=== PATIENT | female | born 1945 | race Caucasian/White ===

== ENCOUNTER 2018-02-25 20:54 | Emergency (ER) | payer MEDICARE, OTHER ==
[~2018-02-25 20:54] MED LIST: ALEN35TA30 PO; CALC-852 PO; CHOL200018 PO; CHOL200025 PO; ERGO500037 PO; ESTR-25 PO; ESTR0.5T16 PO; FLU45SYR17 IM; FLU60SYR30 IM ONLY; MULT1TAB64 PO; PNEU0.5D3 IM
--- NOTE | 2018-02-25 21:02 | ER Report ---
History and Physical Time Seen By MD: 20:56 HPI/ROS CHIEF COMPLAINT: Head injury HISTORY OF PRESENT ILLNESS: Patient is 72-year-old female who was walking her dog this evening and tripped over something on the sidewalk landing on her forehead. She denies loss of consciousness. She did receive a laceration to her forehead that will require primary repair. Patient denies that she is on any blood thinners. She states she is taking eyedrops could she is going to have cataract surgery but otherwise takes no medications. She reports no nausea or vomiting. She recalls recent and remote history. She denies any other injuries or complaints at this time. She states last tetanus was 2 years ago. REVIEW OF SYSTEMS: Respiratory: No cough, no dyspnea. Cardiovascular: No chest pain, no palpitations. Gastrointestinal: No vomiting, no abdominal pain. Musculoskeletal: No back pain. Allergies: Coded Allergies: Penicillins (Verified Allergy, Unknown, 05/01/16) Home Meds Reported Medications Peg 400/Hypromellose/Glycerin (EYE DROP TEARS) 15 Ml Drops, 3 ML OS QDAY 02/25/18 Peg 400/Hypromellose/Glycerin (EYE DROP TEARS) 15 Ml Drops, 1 DROP OD QDAY 02/25/18 Discontinued Reported Medications Cholecalciferol (Vitamin D3) (VITAMIN D) 2,000 Unit Tablet, 1 TAB PO QDAY, CAPSULE 05/01/16 Calcium Carbonate/Vitamin D3 (CALCIUM + VITAMIN D TABLET) 1 Each Tablet, 1 EACH PO QDAY 03/21/14 Past Medical/Surgical History Patient denies Smoking Status: Former Smoker Constitutional Vital Sign - Last 24 Hours 02/25/18 20:59 Temp 97.7 Pulse 94 Resp 20 B/P (MAP) 139/88 Pulse Ox 90 O2 Delivery Room Air Physical Exam General Appearance: The patient is alert, has no immediate need for airway protection and no current signs of toxicity. Eyes: Pupils equal and round no injection. Extraocular muscles are intact and symmetrical Respiratory: Chest is non tender, lungs are clear to auscultation. Cardiac: regular rate and rhythm Gastrointestinal: Abdomen is soft and non tender, no masses, bowel sounds normal. Musculoskeletal: Neck: Neck is supple and non tender. Extremities have full range of motion and are non tender. Skin: Patient has a 3 cm stellate laceration to her forehead. Medical Decision Making EKG/Imaging Imaging 02/25/2018 10:16:04 pm called by [facility] radiology read on head CT is negative ED Course/Re-evaluation ED Course 02/25/2018 9:02:03 pm when at this time will be to perform CT scan of the head. We will perform primary repair on the laceration to the forehead. Procedure: Laceration repair. Verbal consent was obtained from the patient. The 3 cm laceration on the forehead was anesthetized in the usual fashion. The wound was scrubbed, draped and explored to its base with a gloved finger. [ ] There were no deep structures involved. The wound was repaired with 6 single interrupted 5-0 Ethilon sutures. The wound repair was simple. The procedure was performed by myself. Decision to Disposition Date: Feb 25, 2018 Decision to Disposition Time: 22:15 Depart Departure Latest Vital Signs Vital Signs Date Time Temp Pulse Resp B/P (MAP) Pulse Ox O2 Delivery O2 Flow Rate FiO2 02/25/18 20:59 97.7 94 20 139/88 90 Room Air Impression: Primary Impression: Facial laceration Condition: Improved Disposition: HOME OR SELF-CARE Referrals: JOSHUA BUENO MD (PCP) Patient Instructions: Facial Laceration (ED) Additional Instructions: Suture removal in 3-5 days Problem Qualifiers Primary Impression: Facial laceration Encounter type: initial encounter Qualified Codes: S01.81XA - Laceration without foreign body of other part of head, initial encounter ANDREIA TREJO MD Feb 25, 2018 21:02
[2018-02-25] MEDS ORDERED: TETRACAIN/EPI/LIDO GEL 3ML SYR TP ONE (21:05)
[2018-02-25] MEDS ORDERED: PEG15DRO5 OD (21:15)
[2018-02-25] MEDS ORDERED: PEG15DRO5 OS (21:15)
[2018-02-25 21:23] VITALS: BP 112/73
--- NOTE | 2018-02-25 22:18 | RADIOLOGY IMAGING REPORT ---
FACILITY: [facility] - [place] PATIENT NAME: Rivka Nolasco : 1945 MR: [id number] V: [id number] EXAM DATE: ORDERING PHYSICIAN: ANDREIA TREJO TECHNOLOGIST: [place] [facility] [place]: Rivka Nolasco : 1945 Visit/Account:[id number] Date of Sevice: 02/25/2018 HEAD W/O CONTRAST HISTORY: Fall. Forehead laceration. COMPARISON: None. TECHNIQUE: Axial images were obtained from the skull base to the vertex without contrast. Sagittal an d coronal reformats were performed. One of the following dose optimization techniques was utilized in the performance of this exam: Autom ated exposure control; adjustment of the mA and/or kV according to the patient's size; or use of an i terative reconstruction technique. Specific details can be referenced in the facility's radiology CT exam operational policy. CONTRAST: None. FINDINGS: Brain: No intracranial hemorrhage, mass, or edema. There are nonspecific periventricular and subcorti kathleen white matter low attenuation foci, mild in severity. There is mild calcification of the internal carotid arteries. Ventricles and sulci: Sulci are prominent, compatible with mild atrophy, normal for age. Ventricular size and configuration is normal. Osseous structures: Intact. 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 Paranasal sinuses and mastoids: There is a small mucous retention pseudocyst in the right maxillary s inus. There is focal mucosal thickening of the medial left sphenoid sinus. Slight rightward nasal sep lewis deviation. Mastoids are clear. Orbits and soft tissues: There is a small hematoma of the forehead. Changes of prior cataract/lens barrios rgery. IMPRESSION: 1. Forehead hematoma, but no acute intracranial abnormality. Report Dictated By: Wendy Mcfarland at 02/25/2018 10:09 PM Report E-Signed By: Wendy Mcfarland at 02/25/2018 10:14 PM WSN:[id number]
== END 2018-02-25 22:21 | disposition home or self-care (01) ==
LOC: ER 21:35
DX: S01.81XA Laceration without foreign body of other part of head, initial encounter (principal); W01.198A Fall on same level from slipping, tripping and stumbling with subsequent striking against other object, initial encounter
CPT/HCPCS: 70450; 99284

== ENCOUNTER → 2018-10-14 | Outpatient (CLI) | payer MEDICARE, OTHER ==
[~2018-10-14] MED LIST changes: +FLU180SY11 IM; +PEG15DRO5 OD; +PEG15DRO5 OS; +ROSU10TA PO
--- NOTE | 2018-10-14 14:19 | RADIOLOGY IMAGING REPORT ---
FACILITY: [facility] - [place] PATIENT NAME: Rivka Nolasco : 1945 MR: [id number] V: [id number] EXAM DATE: ORDERING PHYSICIAN: DANIELA REAL TECHNOLOGIST: Location: [facility] Patient: Rivka Nolasco : 1945 Visit/Account:[id number] Date of Sevice: 10/14/2018 DEXA Scan Clinical history: Postmenopausal screening. Comparison: DEXA scan from 05/03/2014. LUMBAR SPINE: The bone mineral density (BMD) measured from L1-L4 correlates with a Z-score of 1.2 and a T-score of -0.8 which is Normal as defined by the World Health Organization. The corresponding risk of fracture in the lumbar spine is 1-2 times increased compared with a young adult reference population. This v alue has decrease by 2.1 % since the prior study. More than 5% change is considered significant. HIP: Bone mineral density (BMD) measured in the LEFT total hip region correlates with a Z-score -0.2 and a T-score of -2.1 which is osteopenia as defined by the World Health Organization. The corresponding risk of fracture in the hip is 4-6 times increased compared to a young adult reference population. Th is value has decrease by eight % since the prior study. More than 5% change is considered significan t. T score left femoral neck -2.2 Bone mineral density (BMD) measured in the Femoral Neck region measures 0.737 g/cm?. IMPRESSION: 1. Lumbar spine: Normal. There has been 2.1% decrease in the bone mineral density since the previou s exam. 2. Left Total Hip: Osteopenia. There has been 8% decrease in the bone mineral density since the pre vious exam. 3. Femoral Neck: Bone Mineral Density is 0.737 g/cm? The next DEXA scan of this patient should include the following sites: L1-L4 and the left hip. FRAX? WHO Fracture Risk Assessment Tool link: <http://www.shef.ac.uk/FRAX/tool.jsp?locationValue=9> PLEASE NOTE: 1) The World Health Organization defines low BMD as follows: T-score Normal > -1 Osteopenia < -1 and > -2.5 Osteoporosis < -2.5 without fractures Established osteoporosis < -2.5 with fractures 2) In general, you may wish to consider: Diagnosis Treatment Follow-up DEXA Normal BMD Prevention 2-3 years Osteopenia Prevention/therapy 1-2 years Osteoporosis Therapy Yearly 3) Fracture risk estimated from the T-score is more accurate for vertebral fractures (often spontane ous) than for hip fractures. Report Dictated By: Alejandra Suarez MD at 10/14/2018 2:11 PM Report E-Signed By: Alejandra Suarez MD at 10/14/2018 2:12 PM WSN:[id number]
== END ==
LOC: RAD 13:06
PROVIDERS: ATTEND Emergency Medicine
DX: M85.852 Other specified disorders of bone density and structure, left thigh (principal)
CPT/HCPCS: 77080

== ENCOUNTER → 2018-11-03 | Outpatient (CLI) | payer MEDICARE, OTHER ==
--- NOTE | 2018-11-09 10:05 | RADIOLOGY IMAGING REPORT ---
[place] [facility] [place]IENT NAME: JENNIFER AQUINO : [id number] MR: [id number] V: [id number] EXAM DATE: [id number] ORDERING PHYSICIAN: DANIELA REAL TECHNOLOGIST: Clementina Rodgers PROCEDURE: BILATERAL DIGITAL SCREENING MAMMOGRAM WITH CAD ASSISTED INTERPRETATION & 3D TOMOSYNTHESIS. REASON FOR STUDY: Screening. FAMILY HISTORY OF BREAST CANCER: BREAST PROCEDURES/TREATMENTS: COMPARISON: [facility]. VIEWS OBTAINED: 2D & 3D full field CC & MLO projections. BREAST DENSITY: Scattered fibroglandular densities are present in both breasts. MAMMOGRAM FINDINGS: A few benign appearing asymmetries are scattered bilaterally, unchanged. A small benign appearing mass is present in the inferior aspect of the Left breast, unchanged. Several benign appearing calcifications are scattered bilaterally. IMPRESSION: BIRADS 2: Benign finding. DIAGNOSTIC CATEGORY 2--BENIGN FINDING. RECOMMENDATIONS: ROUTINE MAMMOGRAM AND CLINICAL EVALUATION IN 1YR. Dictated by: Milan Portillo M.D. on 11/03/2018 at 14:48 Transcribed by: ROB on 11/03/2018 at 15:14 Approved by: Maria Eugenia Hamilton M.D. on 11/09/2018 at 10:01 [facility]
== END ==
LOC: MAMO
PROVIDERS: ATTEND Emergency Medicine
DX: Z12.31 Encounter for screening mammogram for malignant neoplasm of breast (principal)
CPT/HCPCS: 77063; 77067

== ENCOUNTER → 2018-11-15 | Outpatient (CLI) | payer MEDICARE, OTHER | LOC: MAMO 10-27 01:12 → LAB 09:23 | PROVIDERS: ATTEND Emergency Medicine | DX: Z12.39 Encounter for other screening for malignant neoplasm of breast (principal); E78.5 Hyperlipidemia, unspecified; G62.9 Polyneuropathy, unspecified | CPT/HCPCS: 36415; 82465; 82607; 83718; 84478 ==